=== PATIENT | female | born 1995 | race Caucasian/White ===

== ENCOUNTER 2017-03-20 15:36 | Emergency (ER) | payer OTHER ==
[~2017-03-20 15:36] MED LIST: ALBUTEROL17 GM INH; BROMFED PO; FLONASE 0.05% N16 GM; QVAR7.3 G1 IH
[2017-05-03] MEDS ORDERED: ALBUTEROL17 GM INH (09:21)
[2017-05-03] MEDS ORDERED: SINGULAIR PO (09:22)
[2017-05-03] MEDS ORDERED: ATARAX PO (12:20)
== END 2017-03-20 17:22 | disposition home or self-care (01) ==
LOC: SED 15:36
DX: N76.4 Abscess of vulva (principal); J45.909 Unspecified asthma, uncomplicated; F17.200 Nicotine dependence, unspecified, uncomplicated; Z88.2 Allergy status to sulfonamides; Z79.899 Other long term (current) drug therapy
CPT/HCPCS: 56405; 99283

== ENCOUNTER → 2017-05-03 | Day surgery (SDC) | payer OTHER ==
[~2017-05-03] MED LIST changes: +ATARAX PO; +SINGULAIR PO
== END | disposition home or self-care (01) ==
LOC: CSUR 05:57
DX: L73.2 Hidradenitis suppurativa (principal); L72.0 Epidermal cyst; L02.214 Cutaneous abscess of groin; L90.5 Scar conditions and fibrosis of skin; Q82.8 Other specified congenital malformations of skin; K21.9 Gastro-esophageal reflux disease without esophagitis; J45.909 Unspecified asthma, uncomplicated; J44.9 Chronic obstructive pulmonary disease, unspecified; F17.210 Nicotine dependence, cigarettes, uncomplicated; Z88.2 Allergy status to sulfonamides; Z79.51 Long term (current) use of inhaled steroids; Z79.899 Other long term (current) drug therapy; Z98.890 Other specified postprocedural states; Z98.818 Other dental procedure status
CPT/HCPCS: 84703; 88304; J2250; J3010; J3370